=== PATIENT | female | born 1985 | race Caucasian/White ===

== ENCOUNTER 2016-08-23 02:44 | Emergency (ER) | payer MEDICAID ==
[~2016-08-23] VITALS: Ht 177.8 cm; Wt 95.0 kg
[2016-08-23 02:59] VITALS: Ht 177.8 cm; Wt 95.0 kg
[2016-08-23] MEDS ORDERED: KETOROLAC 30 MG INJ IM STA (05:11)
[2016-08-23] MEDS ORDERED: LIDOCAINE/MYLANTA 40 ML BTL PO ONE (05:30)
[2016-08-23] MEDS ORDERED: ONDANSETRON (ODT) 4 MG TAB ODT STA (05:38)
--- NOTE | 2016-08-23 06:11 | RADRPT ---
PROCEDURE: XR Chest. CLINICAL INDICATION: chest pain TECHNIQUE: Portable single view of the chest COMPARISON: None. FINDINGS: The cardiomediastinal silhouette appears within normal limits. The lungs are clear and no pleural e ffusion or significant edema is seen. No bony abnormality is seen. IMPRESSION: No definite acute pulmonary disease. RPTAT: [facility]BE Abimbola Kinney Physician Date Time Electronically viewed and signed by Abimbola Kinney Physician on 08/23/2016 06:11 LE/
[2016-08-23] MEDS ORDERED: RANI150T9 PO (06:14)
[2016-08-23] MEDS ORDERED: ALPR0.25 PO (06:14)
[2016-08-23] MEDS ORDERED: TRAM50TA2 PO (06:15)
[2016-08-23 06:34] LABS: URINE BLOOD (Dip) POC Negative (NEGATIVE)
[2016-08-23 07:58] LABS: BASOPHILS % 0.2 % (0.0-2.0); EOSINOPHILS % 0.1 % (0.0-7.0); HEMATOCRIT 33.7 % (37.0-47.0); HEMOGLOBIN 10.8 g/dl (12.0-16.0); LYMPHOCYTES # 1.2 10^3/ul (0.8-2.9); LYMPHOCYTES % 9.5 % (15.0-51.0); MEAN CORPUSCULAR HGB CONC 32.1 g/dl (32.0-37.0); MEAN CORPUSCULAR VOLUME 71.5 fl (82.0-101.0); MEAN PLATELET VOLUME 9.4 fl (7.4-10.4); MONOCYTE # 0.3 10^3/ul (0.3-0.9); MONOCYTES % 1.9 % (0.0-11.0); NEUTROPHIL # 11.6 10^3/ul (1.6-7.5); NEUTROPHILS % 88.3 % (39.0-77.0); PLATELET COUNT 398 10^3/UL (140-440); RED BLOOD COUNT 4.71 10^6/ul (4.20-5.40); RED CELL DISTRIBUTION WIDTH 18.7 % (11.5-14.5); UNCORRECTED WBC 13.1 10^3/ul (4.8-10.8); WHITE BLOOD COUNT 13.1 10^3/ul (4.8-10.8)
[2016-08-23] MEDS ORDERED: RANITIDINE 150 MG TAB PO ONE (08:00)
[2016-08-23 08:08] LABS: ALBUMIN 4.5 g/dl (3.3-4.9); POTASSIUM 3.7 mmol/L (3.5-5.1)
[2016-08-23 08:09] LABS: CONDITION 1; LH ANALYZER COMMENTS 1
[2016-08-23 08:10] LABS: BILIRUBIN,INDIRECT 0.2 mg/dl (0-1.1); BILIRUBIN,TOTAL 0.2 mg/dl (0.2-1.3); CREATININE 0.62 mg/dl (0.44-1.00)
[2016-08-23 08:11] LABS: ALBUMIN/GLOBULIN RATIO 1.32; CALCIUM 8.8 mg/dl (8.4-10.2); TOTAL PROTEIN 7.9 g/dl (6.1-8.1)
--- NOTE | 2016-08-23 08:45 | EN ---
Date/Time of Note Date/Time of Note DATE: 08/23/16 TIME: 08:43 ER Progress Note 30-year-old female was signed out to me by Gaurav Huizar PA-C. I reexamined the patient, despite the Toradol she states that she continues to have pain, she was requesting blood work which I believe is appropriate given her abdominal pain. There is no evidence of anemia, no transaminitis, electrolytes are normal and there is no hyperbilirubinemia and lipase was unremarkable. She has history of chronic abdominal pain for the past 3 months, she will be trialed on ranitidine, given tramadol for pain as well as a short course of benzodiazepines per previous PA. MDM on benzodiazepine was that possibly chest pain was from anxiety. I have asked me to the patient that she may further benefit from an outpatient GI evaluation including endoscopy to evaluate for possible hiatal hernia versus a ulcer. Blood counts were reviewed there is no anemia, no evidence of emergent transfusion, or upper GI bleed. Impression: Abdominal pain Discharge home stable. JB CALDERON PA-C Aug 23, 2016 08:45
[2016-08-23 08:46] VITALS: BP 130/60; PULSE 65; RESP 20; TEMP 97.8
--- NOTE | 2016-08-24 17:27 | ERD ---
ER Documentation Chief Complaint Date/Time DATE: 08/24/16 TIME: 17:22 Chief Complaint CP, "pressure" 03/21, mid-sternum, non radiating, no cardiac history HPI 30-year-old female presents to the emergency department for chest wall pain and body aches, as well as bilateral arm numbness. The patient states her symptoms are intermittent. She has been having these symptoms intermittently for the past 2 months. She reports history of anxiety and depression. She also reports history of increased stress in her life recently. Patient denies any shortness of breath, nausea, vomiting, diarrhea, fevers, chills, or other symptoms at this time. ROS All systems reviewed and are negative except as per history of present illness. Medications Home Meds Active Scripts Tramadol HCl (Tramadol HCl) 50 Mg Tablet, 50 MG PO Q4 Y for PAIN, #15 TAB Prov:LEAH HUBBARD PA-C 08/23/16 Alprazolam* (Xanax*) 0.25 Mg Tablet, 0.25 MG PO Q8H Y for ANXIETY, #7 TAB Prov:LEAH HUBBARD PA-C 08/23/16 Ranitidine Hcl* (Zantac*) 150 Mg Tablet, 150 MG PO BID Y for EPIGASTRIC PAIN, # 20 TAB Prov:LEAH HUBBARD PA-C 08/23/16 Allergies Allergies: Coded Allergies: No Known Allergy (Unverified , 09/10/11) PMhx/Soc Medical and Surgical Hx: pt denies Medical Hx History of Surgery: Yes (c section ) Anesthesia Reaction: No Hx Neurological Disorder: No Hx Respiratory Disorders: No Hx Cardiac Disorders: No Hx Psychiatric Problems: No Hx Miscellaneous Medical Probl: No Hx Alcohol Use: No Hx Substance Use: No Hx Tobacco Use: No FmHx Noncontributory for chief complaint Physical Exam Vitals Vital Signs Date Time Temp Pulse Resp B/P Pulse Ox O2 Delivery O2 Flow Rate FiO2 08/23/16 08:46 97.8 65 20 130/60 97 Room Air 08/23/16 02:59 68 22 134/79 100 Physical Exam INITIAL VITAL SIGNS: Reviewed by me. GENERAL: Alert and interactive. No acute distress. HEAD: Head is normocephalic and atraumatic. EYES: EOMI. No scleral icterus. No conjunctival injection. ENT: Moist mucosa. NECK: Supple. Full range of motion. RESPIRATORY: Normal respiratory effort. Clear breath sounds bilaterally. No wheezing, rales, or rhonchi. CV: Regular rate and rhythm. Normal S1 S2. No S3 or S4. No murmurs. ABDOMEN: Soft, non-distended, non-tender. No guarding. No rebound. No masses. EXTREMITIES: No deformity. SKIN: Warm and dry. NEUROLOGIC: Alert and oriented x 4. Speech is normal. Moves all extremities equally. No motor or sensory deficits noted. Result Diagram: 08/23/16 0749 08/23/16 0749 Results 24 hrs Laboratory Tests Test 08/23/16 06:36 08/23/16 07:49 Bedside Urine Blood Negative Bedside Urine Glucose (UA) Negative Bedside Urine Ketones (LAB) Negative Bedside Urine Leukocyte Esterase (L Negative Bedside Urine Nitrite (LAB) Negative Bedside Urine Protein (LAB) Trace Bedside Urine pH (LAB) 8.5 Alanine Aminotransferase (ALT/SGPT) 27IU/L Albumin 4.5g/dl Albumin/Globulin Ratio 1.32 Alkaline Phosphatase 67IU/L Anion Gap 17 Aspartate Amino Transf (AST/SGOT) 20IU/L Basophils # 0.010^3/ul Basophils % 0.2% Blood Morphology Comment Blood Urea Nitrogen 8mg/dl Calcium Level 8.8mg/dl Carbon Dioxide Level 28mmol/L Chloride Level 102mmol/L Creatinine 0.62mg/dl Direct Bilirubin 0.00mg/dl Eosinophils # 0.010^3/ul Eosinophils % 0.1% Globulin 3.40g/dl Glucose Level 121mg/dl Hematocrit 33.7% Hemoglobin 10.8g/dl Indirect Bilirubin 0.2mg/dl Lipase 51U/L Lymphocytes # 1.210^3/ul Lymphocytes % 9.5% Mean Corpuscular Hemoglobin 23.0pg Mean Corpuscular Hemoglobin Concent 32.1g/dl Mean Corpuscular Volume 71.5fl Mean Platelet Volume 9.4fl Monocytes # 0.310^3/ul Monocytes % 1.9% Neutrophils # 11.610^3/ul Neutrophils % 88.3% Nucleated Red Blood Cells # 0.010^3/ul Nucleated Red Blood Cells % 0.0/100WBC Platelet Count 84207^3/UL Potassium Level 3.7mmol/L Red Blood Count 4.7110^6/ul Red Cell Distribution Width 18.7% Sodium Level 143mmol/L Total Bilirubin 0.2mg/dl Total Protein 7.9g/dl White Blood Count 13.110^3/ul Current Medications Medications (Trade) Dose Ordered Sig/[place] Route PRN Reason Start Time Stop Time Status Last Admin Dose Admin Ketorolac Tromethamine (Toradol) 30 mg ONCE STAT IM 08/23/16 05:11 08/23/16 08:48 DC 08/23/16 06:36 Miscellaneous Medication (Gi Cocktail (2)) 40 ml ONCE ONCE PO 08/23/16 05:30 08/23/16 08:48 DC 08/23/16 06:03 Ondansetron HCl (Zofran Odt) 4 mg ONCE STAT ODT 08/23/16 05:38 08/23/16 08:48 DC 08/23/16 05:42 Ranitidine HCl (Zantac) 300 mg ONCE ONCE PO 08/23/16 08:00 08/23/16 08:48 DC 08/23/16 08:04 Procedures/MDM 30-year-old female presents secondary to complaints of anxiety symptoms. On physical examination the patient's vitals are within normal limits. EKG: Interpreted by ED physician Rate/Rhythm: Normal sinus rhythm with a rate of [address] bpm. QRS, ST, T-waves: No changes consistent w/ acute ischemia Impression: No evidence of ischemia or arrhythmia PROCEDURE: XR Chest. CLINICAL INDICATION: chest pain TECHNIQUE: Portable single view of the chest COMPARISON: None. FINDINGS: The cardiomediastinal silhouette appears within normal limits. The lungs are clear and no pleural effusion or significant edema is seen. No bony abnormality is seen. IMPRESSION: No definite acute pulmonary disease. RPTAT: HLBE Physician Billy Date Time Electronically viewed and signed by Abimbola Kinney Physician on 08/23/2016 06 :11 The patient was given Toradol, Zofran, and Zantac in the department and was feeling improved after treatment. Lab results reviewed and showed a mild leukocytosis but no other abnormalities. I believe this could be viral in etiology. Patient has also been under stress lately and her white count may be ray secondary to this. Urinalysis was negative for any signs of urinary tract infection. The patient's primary diagnosis is epigastric pain. I have low suspicion for esophageal varices, acute abdomen, acute coronary ischemia, pneumothorax, pulmonary embolism, or other emergent conditions at this time. The patient understands her diagnosis and treatment plan. All of her questions and concerns were addressed and she was hemodynamically stable prior to discharge. Departure Diagnosis: Primary Impression: Epigastric pain Condition: Fair Patient Instructions: Gerd (Adult), Epigastric Pain (Uncertain Cause) Referrals: [facility] YOU HAVE RECEIVED A MEDICAL SCREENING EXAM AND THE RESULTS INDICATE THAT YOU DO NOT HAVE A CONDITION THAT REQUIRES URGENT TREATMENT IN THE EMERGENCY DEPARTMENT. FURTHER EVALUATION AND TREATMENT OF YOUR CONDITION CAN WAIT UNTIL YOU ARE SEEN IN YOUR DOCTORS OFFICE WITHIN THE NEXT 1-2 DAYS. IT IS YOUR RESPONSIBILITY TO MAKE AN APPOINTMENT FOR FOLOW-UP CARE. IF YOU HAVE A PRIMARY DOCTOR --you should call your primary doctor and schedule an appointment IF YOU DO NOT HAVE A PRIMARY DOCTOR YOU CAN CALL OUR PHYSICIAN REFERRAL HOTLINE AT IF YOU CAN NOT AFFORD TO SEE A PHYSICIAN YOU CAN CHOSE FROM THE FOLLOWING [facility] [id number] [facility]. [facility] [address] [facility]. [facility] [address] [facility] [facility] [address] [facility]. [facility] [address] [facility]. [facility]. [address] Additional Instructions: Follow-up with your primary care physician within 1 week. Return to the emergency department immediately should you have any new or worsening symptoms, uncontrolled fevers, or other unexplained symptoms. Take all medications as directed. LEAH HUBBARD PA-C Aug 24, 2016 17:26
== END 2016-08-23 08:48 | disposition home or self-care (01) ==
LOC: FTE 02:44
DX: R10.13 Epigastric pain (principal)
CPT/HCPCS: 36415; 71010; 80053; 81003; 83690; 85025; 93005; 96372; J1885; Z7502; Z7610

== ENCOUNTER 2017-09-03 08:05 | Emergency (ER) | END 2017-09-03 09:42 | disposition home or self-care (01) ==